=== PATIENT | female | born 1990 | race American Indian/Alaskan Native ===

== ENCOUNTER 2021-06-07 00:51 | Emergency (ER) | payer SELFPAY ==
[2021-06-07 02:07] VITALS: BP 117/63
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
== END 2021-06-07 06:21 | disposition home or self-care (01) ==
LOC: ED 00:51
DX: S00.33XA Contusion of nose, initial encounter (principal); R04.0 Epistaxis; X58.XXXA Exposure to other specified factors, initial encounter; Y93.89 Activity, other specified; Y92.89 Other specified places as the place of occurrence of the external cause; Y99.8 Other external cause status
CPT/HCPCS: 70160; 99283